=== PATIENT | male | born 1955 | race Caucasian/White ===

== ENCOUNTER 2016-06-04 17:51 | Emergency (ER) | payer OTHER ==
[~2016-06-04] VITALS: Ht 182.9 cm; Wt 99.1 kg
[~2016-06-04 17:51] MED LIST: ANTIFUNGAL TP; ANUSOL HC,ANUCO25 MG PR; ANUSOL-HC21 GM PR; AQUAPHOR TP; Anusol HC,Proctozone PR; CALCIUM ANTACI500 MG PO; CALMOSEPTINE O120 GM TP; CLARITIN10 MG PO; CLEOCIN150 MG PO; CLEOCIN300 MG PO; CLONIDINE HCL0.1 MG PO; CLOTRIMAZOLE15 GM TP; COLACE100 MG PO; COLACE50 MG PO; Claritin,Alavart PO; DAILY MULTIPLE1 EACH PO; DEBROX15 ML BOTH EARS; DIAZEPAM5 MG PO; FEOSOL325 MG PO; FLONASE16 G1 BOTH NARES; FLORAJEN460 MG PO; FLORASTOR250 MG PO; FOLIC ACID1 MG PO; Feosol PO; Flonase BOTH NARES; Folvite PO; GENTAMICIN SULFA5 ML BOTH EYES; HYDROCHLOROTHIA25 MG PO; HYDROCHLOROTHIA50 MG PO; Hydrodiuril,Oretic,E PO; IMODIUM MS REL1 EACH PO; LEVAQUIN500 MG PO; LIORESAL10 MG PO; LOPERAMIDE2 MG PO; LOTRIMIN AF24 GM TP; Lioresal PO; Lotrimin Cream TP; MAG-AL PLUS SUS30 ML PO; METHOCARBAMOL500 MG PO; MIRALAX17 GM PO; MOBIC7.5 MG PO; Maalox, Mylanta PO; Miralax, Glycolax PO; PAXIL20 MG PO; PAXIL30 MG PO; PREDNISONE20 MG PO; PRILOSEC40 MG PO; PROBIOTIC250 MG PO; Paxil PO; Q-TUSSIN DM SY240 ML PO; REFRESH TEARS15 ML BOTH EYES; ROBITUSSIN DM118 ML PO; Robitussin DM PO; TEGRETOL XR400 MG PO; TEGRETOL-XR,CA400 MG PO; TEGretol-XR,Carbatro PO; THERAGRAN1 TABLET PO; TRAMADOL HCL50 MG PO; TRIPLE ANTIB28.35 GM TP; TUMS500 MG PO; TYLENOL EXTRA500 MG PO; Tums PO; Tylenol Extra Streng PO; ULTRAM50 MG PO; Ultram PO; VALIUM5 MG PO; VANCOMYCIN HCL125 MG PO; Valium PO; ZESTRIL,PRINIVI40 MG PO; ZESTRIL20 MG PO; ZESTRIL40 MG PO; Zestril,Prinivil PO; [UNRECOGNIZED DRUG - OTHER] TP; [UNRECOGNIZED DRUG - OTHER] TP
[2016-06-04] MEDS ORDERED: PAXIL30 MG PO (18:51)
[2016-06-04] MEDS ORDERED: BACLOFEN10 MG PO (18:51)
[2016-06-04 19:54] VITALS: BP 111/83
== END 2016-06-04 20:07 | disposition home or self-care (01) ==
LOC: EME 17:51
DX: R09.02 Hypoxemia (principal); G80.0 Spastic quadriplegic cerebral palsy; K21.9 Gastro-esophageal reflux disease without esophagitis; R56.9 Unspecified convulsions
CPT/HCPCS: 71010; 71020; 80048; 84484; 85027; 93005; 99281; 99284

== ENCOUNTER 2016-06-06 11:46 | Emergency (ER) | payer OTHER ==
[~2016-06-06] VITALS: Ht 182.9 cm; Wt 99.3 kg
[~2016-06-06 11:46] MED LIST changes: +BACLOFEN10 MG PO
[2016-06-06 14:03] LABS: HEMATOCRIT 40.7 % (38.0-50.0); MCH 31.3 PG (29.0-34.0); MCHC 33.2 G/DL (30.0-36.0); MCV 94.2 FL (86-99); PLATELET COUNT 264 K/uL (156-360); RBC DIS.WIDTH-CV 14.8 % (11.8-14.6); RBC DIS.WIDTH-SD 48.6 % (39-53); RED BLOOD COUNT 4.32 M/uL (4.00-5.50); WHITE BLOOD COUNT 20.2 K/uL (4.1-10.2)
[2016-06-06 15:14] LABS: HEMATOCRIT 40.9 % (38.0-50.0); MCH 31.3 PG (29.0-34.0); MCHC 33.3 G/DL (30.0-36.0); MCV 94.2 FL (86-99); MEAN PLAT.VOLUME 8.9 uM^3 (9.0-12.4); PLATELET COUNT 276 K/uL (156-360); RBC DIS.WIDTH-CV 14.7 % (11.8-14.6); RED BLOOD COUNT 4.34 M/uL (4.00-5.50); WHITE BLOOD COUNT 18.1 K/uL (4.1-10.2)
[2016-06-06 15:24] LABS: CHLORIDE 103 mEq/L (99-109); POTASSIUM 4.3 mEq/L (3.7-5.4); SODIUM 138 mEq/L (136-147)
[2016-06-06 15:26] LABS: GLUCOSE 98 mg/dL (70-99)
[2016-06-06 15:27] LABS: ANION GAP 9 MEQ/L (2-14)
[2016-06-06 15:28] LABS: TOTAL BILIRUBIN 0.3 mg/dL (0.0-1.0)
[2016-06-06 15:29] LABS: ALKALINE PHOSPHATASE 108 IU/L (3-129)
[2016-06-06 15:30] LABS: GFR ESTIMATE (CALCULATED) > 59 mL/min/
[2016-06-06 15:31] LABS: UREA NITROGEN (BUN) 17 mg/dL (9-23)
[2016-06-06 15:33] LABS: LIPASE 30 U/L (1.0-51.0)
[2016-06-06 15:38] LABS: ADD MIUA? YES; BILIRUBIN NEGATIVE; BLOOD TRACE; COLOR YELLOW ((YELLOW)); GLUCOSE (STRIP) NEGATIVE; KETONES NEGATIVE; LEUKOCYTES SMALL; NITRITE NEGATIVE; PH, URINE 6.5 (5-8); PROTEIN (STRIP) NEGATIVE; SPECIFIC GRAVITY 1.018 (1.000-1.030); UROBILINOGEN 0.2 MG/DL (0.2-1.0)
[2016-06-06 16:19] LABS: RED BLOOD CELLS RARE /HPF (0-5); WHITE BLOOD CELLS RARE /HPF (0-5)
[2016-06-06 16:21] LABS: BACTERIA NONE SEEN /HPF; CASTS NONE SEEN /LPF; CRYSTALS NONE SEEN; EPITHELIAL CELLS NONE SEEN /HPF; MUCUS NONE SEEN /LPF; UCUL ADDED? NO
[2016-06-06] MEDS ORDERED: CIPRO500 MG PO (17:49)
[2016-06-06] MEDS ORDERED: FLAGYL500 MG PO (17:49)
[2016-06-06 18:45] VITALS: BP 112/75
== END 2016-06-06 19:19 | disposition home or self-care (01) ==
LOC: EME 11:46
PROVIDERS: Nurse Practitioner Family
DX: K52.9 Noninfective gastroenteritis and colitis, unspecified (principal); K62.89 Other specified diseases of anus and rectum; N20.0 Calculus of kidney; I10 Essential (primary) hypertension; G80.0 Spastic quadriplegic cerebral palsy
CPT/HCPCS: 74177; 80048; 80053; 81003; 83605; 83690; 85027; 87493; 99281; 99285; J1200; J2930

== ENCOUNTER 2016-07-24 13:03 | Emergency (ER) | payer OTHER ==
[~2016-07-24] VITALS: Ht 175.3 cm; Wt 109.0 kg
[~2016-07-24 13:03] MED LIST changes: +CIPRO500 MG PO; +FLAGYL500 MG PO
[2016-07-24 14:49] LABS: HEMATOCRIT 41.3 % (38.0-50.0); MCH 31.5 PG (29.0-34.0); MCHC 32.9 G/DL (30.0-36.0); MCV 95.6 FL (86-99); MEAN PLAT.VOLUME 8.9 uM^3 (9.0-12.4); PLATELET COUNT 276 K/uL (156-360); RBC DIS.WIDTH-CV 14.2 % (11.8-14.6); RBC DIS.WIDTH-SD 49.6 % (39-53); RED BLOOD COUNT 4.32 M/uL (4.00-5.50)
[2016-07-24 14:59] LABS: CHLORIDE 103 mEq/L (99-109); POTASSIUM 4.7 mEq/L (3.7-5.4); SODIUM 137 mEq/L (136-147)
[2016-07-24 15:00] LABS: GLUCOSE 110 mg/dL (70-99)
[2016-07-24 15:02] LABS: ANION GAP 14 MEQ/L (2-14)
[2016-07-24 15:04] LABS: GFR ESTIMATE (CALCULATED) > 59 mL/min/
[2016-07-24 15:05] LABS: UREA NITROGEN (BUN) 19 mg/dL (9-23)
[2016-07-24 16:00] VITALS: BP 104/73
== END 2016-07-24 16:57 | disposition home or self-care (01) ==
LOC: EME 13:03
PROVIDERS: Emergency Medicine
DX: R11.10 Vomiting, unspecified (principal); I10 Essential (primary) hypertension; K21.9 Gastro-esophageal reflux disease without esophagitis; G80.9 Cerebral palsy, unspecified; I73.9 Peripheral vascular disease, unspecified
CPT/HCPCS: 71020; 80048; 85027; 99281; 99284

== ENCOUNTER → 2017-02-23 | Outpatient (CLI) | payer OTHER ==
[~2017-02-23] VITALS: Ht 182.9 cm; Wt 95.7 kg
[~2017-02-23] MED LIST changes: +COMPAZINE10 MG PO; +DESENEX85 GM TP; +EAR WAX REMOVAL15 ML BOTH EARS; +GAVILYTE-N SO4000 ML PO; +GERI-LANTA LIQ355 ML PO; +MUPIROCIN22 GM TP; +PROBIOTIC1 EAC2 PO; +PROCTOZONE-HC30 GM PR; +Q-TUSSIN PO; +SECURA PROTECTI78 GM TP; +THICK-IT PO; +ZOLPIDEM TART6.25 MG PO; +[UNRECOGNIZED DRUG - OTHER] TP; +[UNRECOGNIZED DRUG - SUPPLY] TP
== END | disposition home or self-care (01) ==
LOC: AMB 12:29
PROC: 0DBN8ZX Excision of Sigmoid Colon, Via Natural or Artificial Opening Endoscopic, Diagnostic (ICD-10-PCS; principal; 2017-02-23)
DX: Z12.11 Encounter for screening for malignant neoplasm of colon (principal); K63.5 Polyp of colon; Z86.010 Personal history of colon polyps; K64.8 Other hemorrhoids; I10 Essential (primary) hypertension; G40.909 Epilepsy, unspecified, not intractable, without status epilepticus
CPT/HCPCS: 88305; J2250; J3010